=== PATIENT | female | born 1990 | race Caucasian/White ===

== ENCOUNTER 2019-12-14 18:19 | Outpatient (CLI) | payer OTHER | END 2019-12-14 18:20 | disposition home or self-care (01) | LOC: COV 18:19 | PROVIDERS: ATTEND Family Medicine | DX: R06.02 Shortness of breath (principal); M79.10 Myalgia, unspecified site; R53.83 Other fatigue; R68.83 Chills (without fever); R19.7 Diarrhea, unspecified | CPT/HCPCS: 81599 ==